=== PATIENT | female | born 1955 | race Caucasian/White ===

== ENCOUNTER 2019-04-29 17:03 | Emergency (ER) | payer BC, OTHER ==
[~2019-04-29] VITALS: Ht 165.1 cm; Wt 84.0 kg
[~2019-04-29 17:03] MED LIST: HYDR-3498 PO; IBUP-1542 PO
[2019-04-29 17:08] VITALS: Ht 165.1 cm; Wt 84.0 kg
--- NOTE | 2019-04-29 18:13 | ERD ---
ER Documentation Chief Complaint Chief Complaint right shoulder pain after a fall 2 days ago HPI 63-year-old female, previously healthy, presents to the emergency department, complaining of worsening of right shoulder pain after sustaining a direct trauma with a door 2 days ago. The pain is dull, constant, 6/10, associated with extension and external rotation of the shoulder. The patient denies direct erythema, swelling, no reports of distal numbness tingling. The patient also denies fever or chills, no rashes. ROS All systems reviewed and are negative except as per history of present illness. Medications Home Meds Active Scripts Baclofen* (Baclofen*) 10 Mg Tablet, 10 MG PO QHS, #10 TAB Prov:CARLOS HUIZAR MD 04/29/19 Hydrocodone/Acetaminophen ([place] 5-325 Tablet) 1 Each Tablet, 1 TAB PO QHS PRN for PAIN, #7 TAB Prov:CARLOS HUIZAR MD 04/29/19 Prednisone* (Prednisone*) 20 Mg Tab, 40 MG PO DAILY for 4 Days, TAB Prov:CARLOS HUIZAR MD 04/29/19 Ibuprofen* (Motrin*) 600 Mg Tab, 600 MG PO Q6, #20 TAB Prov:JUAN DIEGO RILEY MD 12/12/15 Hydrocodone Bit-Acetaminophen* ([place]*) 5-325 Mg Tab, 1 TAB PO Q6 PRN for PAIN, #16 TAB Prov:JUAN DIEGO RILEY MD 12/12/15 Allergies Allergies: Coded Allergies: No Known Allergy (Unverified , 04/29/19) PMhx/Soc History of Surgery: Yes (left knee replacement) Anesthesia Reaction: No Hx Neurological Disorder: No Hx Respiratory Disorders: No Hx Cardiac Disorders: No Hx Psychiatric Problems: No Hx Miscellaneous Medical Probl: No Hx Alcohol Use: No Hx Substance Use: No Hx Tobacco Use: No Smoking Status: Never smoker FmHx Family History: No diabetes, No coronary disease Physical Exam Vitals Vital Signs Date Temp Pulse Resp B/P (MAP) Pulse Ox O2 O2 Flow FiO2 Time Delivery Rate 04/29/19 98.5 68 20 117/75 97 Room Air 19:39 (89) 04/29/19 99.9 91 18 127/69 99 17:08 (88) Physical Exam Const: No acute distress Head: Atraumatic Eyes: Normal Conjunctiva ENT: Normal External Ears, Nose and Mouth. Neck: Full range of motion. No meningismus. Resp: Clear to auscultation bilaterally Cardio: Regular rate and rhythm, no murmurs Abd: Soft, non tender, non distended. Normal bowel sounds Skin: No petechiae or rashes Back: No midline or flank tenderness Ext: Right shoulder: Normal inspection, diffuse tenderness to palpation, decreased range of motion due to pain, no cyanosis, or edema Neur: Awake and alert Psych: Normal Mood and Affect Results 24 hrs Current Medications Medications Dose Sig/Jostin Start Time Status Last (Trade) Ordered Route PRN Stop Time Admin Dose Reason Admin 8 mg ONCE ONCE 04/29/19 DC 04/29/19 Dexamethasone IM 18:30 18:32 (Decadron) 04/29/19 18:31 1 tab ONCE ONCE 04/29/19 DC 04/29/19 Acetaminophen PO 18:30 18:31 / 04/29/19 18:31 Hydrocodone Bitart ([place] (5/325)) Procedures/MDM Acute right shoulder pain: no red flags. Differential diagnosis include but not limited to: Shoulder contusion, rotator cuff injury, tendon/ligament injury, arthritis; low suspicion for fracture, dislocation, septic arthritis. Neurovascular exam grossly intact. no clinical findings suggestive of acute infectious process, no acute deformity, no edema, no rashes. Physical examination and clinical presentation consistent most likely with right shoulder contusion. During the ED course the patient received treatment with Toradol IM presenting overall improvement of the symptoms. Results and clinical impression discussed with the patient who agrees with management. The patient is stable to be treated outpatient and will be discharged home with recommendations for ice, rest and partial immobilization. NSAIDs 3 times daily for 5 days and close monitoring. The patient was instructed to follow up with the primary care provider in the next 48h. If symptoms persist, worsen or new symptoms develop, then patient should return to the ED immediately. Instructions explained and given to patient with acknowledgment and demonstrated understanding. Disclaimer: Inadvertent spelling and grammatical errors are likely due to EHR/dictation software use and do not reflect on the overall quality of patient care. Also, please note that the electronic time recorded on this note does not necessarily reflect the actual time of the patient encounter. Departure Diagnosis: Primary Impression: Shoulder tendinitis Condition: Stable Additional Instructions: Thank you very much for allowing us to participate in your care. Your health and safety is our top priority at [facility]. The evaluation in the emergency department has been done to rule out an acute emergency. Chronic, [id number] conditions may have not been evaluated; therefore, you need to follow up with a primary care provider in the next 48h. If symptoms persist, worsen or new symptoms develop, then patient should return to the ED immediately. Call your primary care doctor TOMORROW for an appointment during the next 2-4 days and bring all the information provided. Have prescriptions filled and follow precisely the directions on the label. If the symptoms get worse and your provider is unavailable, return to the Emergency Department immediately. CARLOS HUIZAR MD Apr 29, 2019 18:13
[2019-04-29] MEDS ORDERED: HYDROCODONE/APAP (5/325) TAB PO ONE (18:30)
[2019-04-29] MEDS ORDERED: DEXAMETHASONE 10 MG/ML 1 ML INJ IM ONE (18:30)
[2019-04-29] MEDS ORDERED: BACL10TA PO (19:23)
[2019-04-29] MEDS ORDERED: PRED20TA PO (19:23)
[2019-04-29] MEDS ORDERED: HYDR-4011 PO (19:23)
[2019-04-29 19:39] VITALS: BP 117/75; PULSE 68; RESP 20
== END 2019-04-29 19:40 | disposition home or self-care (01) ==
LOC: FTE 17:03
DX: M75.91 Shoulder lesion, unspecified, right shoulder (principal); Z96.652 Presence of left artificial knee joint
CPT/HCPCS: 73030; J1100; Z7610; 96372